=== PATIENT | female | born 1950 | race Caucasian/White ===

== ENCOUNTER 2021-02-16 17:16 | Outpatient (CLI) | payer MEDICARE, MEDICAID | END 2021-02-16 17:17 | disposition critical access hospital (66) | LOC: EMS 17:16 | DX: U07.1 COVID-19 (principal) | CPT/HCPCS: A0425; A0427 ==

== ENCOUNTER 2021-02-16 17:36 | Emergency (ER) | payer MEDICARE, MEDICAID ==
[2021-02-16] MEDS ORDERED: SODIUM CHLORIDE 0.9% 1,000 ML IV STA (18:07)
--- NOTE | 2021-02-16 18:07 | ED Physician Documentation ---
History of Present Illness - Stated complaint Stated Complaint: C+/WEAK/LETHARGIC - Chief complaint Chief Complaint: Abd Pain - Additonal information Additional information: 71-year-old female was brought to the emergency department from home place where she was brought in for evaluation of reported abdominal pain lethargy and weakness. She is currently in their Covid unit and recently tested positive for COVID-19. History is limited from the patient as she has a history of dementia. She is a full code. Court records show that she has been court appointed a guardian. On presentation to the emergency department here the patient is quite alert and very feisty. She is denying any abdominal pain chest pain or shortness of air. She is quite resistant to any of our ministrations. She is requesting popcorn to eat Records indicate a history of dementia, anxiety, depression, COPD, heart failure, diabetes type 2 Meds: Clonazepam, Pepcid, memantine mean, mirtazapine, olanzapine, Ventolin Review of Systems Unable to obtain: Dementia, Other (per EMS and home place) PD PAST MEDICAL HISTORY - Present Medications Home Medications: Ambulatory Orders Medication Instructions Recorded Confirmed Famotidine [Pepcid] 1 tab PO DAILY 02/16/21 02/16/21 Melatonin 1 tab PO DAILY 02/16/21 02/16/21 Memantine [Namenda] 1 tab PO BID 02/16/21 02/16/21 Mirtazapine 1 tab PO HS 02/16/21 02/16/21 OLANZapine [Olanzapine] 1 tab PO BID 02/16/21 02/16/21 amLODIPine [Norvasc] 10 mg PO DAILY 02/16/21 02/16/21 clonazePAM [Clonazepam] 0.5 mg PO BID 02/16/21 02/16/21 traZODone [Desyrel] 100 mg PO HS 02/16/21 02/16/21 - Allergies Allergies/Adverse Reactions: Allergies Allergy/AdvReac Type Severity Reaction Status Date / Time acetaminophen [From Tylenol] Allergy Unknown Verified 02/16/21 18:31 chlorpheniramine Allergy Unknown Verified 02/16/21 18:31 codeine Allergy Unknown Verified 02/16/21 18:31 dextromethorphan Allergy Unknown Verified 02/16/21 18:31 diphenhydramine Allergy Unknown Verified 12/03/21 18:31 [From Benadryl] oxycodone Allergy Unknown Verified 02/16/21 18:31 Penicillins Allergy Unknown Verified 02/16/21 18:31 pseudoephedrine Allergy Unknown Verified 02/16/21 18:31 PD ED PE EXPANDED - General General: Alert, No acute distress, Other (agitated, angry, fiesty) - Cardiac Cardiac: Tachy, Pedal strong equal, Cap refill < 2 sec. No: Murmur Present - Respiratory Respiratory: Wheezing (fains scattered expiratory wheeze. room air saturations 100%). No: Distress, Labored - Abdomen Abdomen: Normal Bowel sounds. No: Tender to palpation - Derm Derm: Normal color, Warm and dry. No: Rash - Extremities Extremities: Normal. No: Deformity, Tenderness - Neuro Neuro: Confused, Other (No obvious motor deficits. Patient does not participate in neuro exam.) - GCS Eye Opening: Spontaneous Motor: Obeys Commands Verbal: Oriented Total: 15 Results - Vitals Vitals: Vital Signs - 24 hr 02/16/21 02/16/21 17:50 18:37 Temperature 37.1 C Heart Rate 113 H 65 Respiratory 16 18 Rate Blood Pressure 164/120 H O2 Saturation 100 97 Oxygen O2 Source Room air - Labs Labs: Laboratory Tests 02/16/21 02/16/21 18:19 18:19 WBC 4.0 L RBC 4.33 Hgb 11.6 L Hct 36.7 L MCV 84.8 MCH 26.8 L MCHC 31.6 L RDW 13.6 Plt Count 189 MPV 9.5 Neut # (Auto) 2.5 Lymph # (Auto) 1.1 L [place] # (Auto) 0.3 Eos # (Auto) 0.0 Baso # (Auto) 0.0 Absolute Nucleated RBC 0.00 Nucleated RBC % 0.0 Sodium 139 Potassium 4.1 Chloride 102 Carbon Dioxide 28 Anion Gap 9.0 BUN 27 H Creatinine 0.9 Estimated GFR (MDRD) 62 L Glucose 148 H Calcium 8.4 L Total Bilirubin 0.4 AST 26 ALT 20 Alkaline Phosphatase 60 Total Protein 7.1 Albumin 3.4 Globulin 3.7 Albumin/Globulin Ratio 0.9 L Lipase 27 PD MEDICAL DECISION MAKING - ED course Complexity details: reviewed old records, reviewed results, re-evaluated patient, d/w patient ED course: 71-year-old female who carries a history most significant for dementia, congestive heart failure, and COPD who was recently diagnosed with COVID-19 in fection while at her [facility], comes to the emergency department as the care providers at her care facility had reported that she was lethargic and complaining of abdominal pain. She does have a court appointed power of associate attorney. She is a full code On presentation to the emergency department she had room air saturations of 100%. She was quite alert animated and feisty. She was requesting popcorn to eat. She was resistant to most of our ministrations. Clinical exam revealed very faint scattered expiratory wheezes. This is consistent with a history of COPD. Given the late hour of the day we are unable to provide Mab therapy. She did not have any obvious focal neurological deficits. We did not elicit any abdominal pain. We did do screening labs that showed a very mild leukocytosis which is consistent with a history of Covid infection. Screening CBC otherwise unremarkable sparing mild anemia. Her electrolytes were not significantly deranged and she did not appear significantly dehydrated. However she was repleted with a liter of fluid here in the emergency department. We deferred any CT imaging of her abdomen as no abdominal pain was elicited pa cecy was requesting to eat and tolerating oral fluids. She is discharged back to home place in stable condition. Departure - Departure Disposition: 01 Home, Self Care Clinical Impression: SARS-CoV-2 positive Dementia Qualifiers: Dementia type: unspecified type Dementia behavioral disturbance: with behavioral disturbance Qualified Code(s): F03.91 - Unspecified dementia with behavioral disturbance Condition: Stable Record reviewed to determine appropriate education?: Yes Comments: Teresa was sent to the emergency department with known COVID-19 infection. It was reported to us that she was dehydrated and complaining of abdominal pain and was lethargic. On presentation to the emergency department Teresa was very vocal and animated. She denied any abdominal pain. On exam we were unable to elicit any abdominal pain. Her room air saturations were 100% without any oxygen therapy. Screening labs do show a mildly reduced white blood cell count which is often seen in COVID-19 infection. She does have a very mild anemia with a hemoglobin of 10.4. Her screening electrolytes, kidney function and liver function tests are without worrisome findings. She was given a liter of IV fluids here in the emergency department. She is otherwise stable to return to home place.
[2021-02-16 18:26] LABS: BASOPHILS % (AUTO) 0.2 %; EOSINOPHILS % (AUTO) 0.5 %; HCT - HEMATOCRIT 36.7 % (37.0-47.0); HGB - HEMOGLOBIN 11.6 g/dL (12.0-16.0); LYMPHOCYTES # (AUTO) 1.1 10^3/uL (1.5-3.5); LYMPHOCYTES % (AUTO) 28.4 %; MEAN CORPUSCULAR HEMOGLOBIN 26.8 pg (27.0-31.0); MEAN CORPUSCULAR HGB CONC 31.6 g/dL (32.0-36.0); MEAN CORPUSCULAR VOLUME 84.8 fL (81.0-99.0); MEAN PLATELET VOLUME 9.5 fL (7.9-10.8); MONOCYTES # (AUTO) 0.3 10^3/uL (0.0-1.0); MONOCYTES % (AUTO) 7.7 %; NEUTROPHILS # (AUTO) 2.5 10^3/uL (1.5-6.6); PLT - PLATELET COUNT 189 10^3/uL (130-450); RED BLOOD COUNT 4.33 10^6/uL (4.20-5.40); RED CELL DISTRIBUTION WIDTH 13.6 % (12.0-15.0)
[2021-02-16 18:35] LABS: ALBUMIN 3.4 g/dL (3.2-5.5); ALBUMIN/GLOBULIN RATIO 0.9 (1.0-2.2); BILIRUBIN,TOTAL 0.4 mg/dL (0.2-1.0); CALCIUM 8.4 mg/dL (8.5-10.3); CREATININE 0.9 mg/dL (0.4-1.0); POTASSIUM 4.1 mmol/L (3.5-5.0); TOTAL PROTEIN 7.1 g/dL (6.7-8.2)
[2021-02-16 20:48] VITALS: BP 92/58
== END 2021-02-16 20:48 | disposition home or self-care (01) ==
LOC: ED 17:36
DX: U07.1 COVID-19 (principal); J44.9 Chronic obstructive pulmonary disease, unspecified; F03.90 Unspecified dementia, unspecified severity, without behavioral disturbance, psychotic disturbance, mood disturbance, and anxiety; E11.9 Type 2 diabetes mellitus without complications; I50.9 Heart failure, unspecified
CPT/HCPCS: 36415; 80053; 83690; 85025; 99282; 99283

== ENCOUNTER 2021-02-16 20:52 | Outpatient (CLI) | payer MEDICARE, MEDICAID | END 2021-02-16 20:53 | disposition home or self-care (01) | LOC: EMS 20:52 | PROVIDERS: ATTEND Registered Nurse | DX: U07.1 COVID-19 (principal); Z74.01 Bed confinement status | CPT/HCPCS: A0425; A0428 ==